=== PATIENT | female | born 1965 | race Caucasian/White ===

== ENCOUNTER 2017-12-01 09:09 | Day surgery (SDC) | payer OTHER ==
[2017-11-30 17:08] VITALS: BMI 33.5
[2017-12-01] MEDS ORDERED: PROPOFOL 20 ML ONE (12:31)
[2017-12-01] MEDS ORDERED: MIDAZOLAM HCL 2 MG/2 ML SINGLE DOSE VIAL ONE (12:31)
[2017-12-01] MEDS ORDERED: ePHEDrine SULFATE 50 MG/1 ML AMPULE ONE (12:36)
[2017-12-01] MEDS ORDERED: LIDOCAINE HCL 2% (20ML MULTI-DOSE VIAL) NR ONE (13:14)
[2017-12-01] MEDS ORDERED: LIDOCAINE HCL 1%, 10 MG/ML (50 mL VIAL) IJ ONE (13:24)
[2017-12-01] MEDS ORDERED: LIDOCAINE HCL 1% PRESERVATIVE FREE - 30ML VIAL IJ ONE (13:24)
[2017-12-01] MEDS ORDERED: ONDANSETRON 4 MG/2 ML VIAL IVPUSH PRN (14:32)
[2017-12-01] MEDS ORDERED: oxyCODONE HCL 5 MG TABLET PO PRN (14:32)
[2017-12-01] MEDS ORDERED: ACETAMINOPHEN INJECTION 100 ML IVPB ONE (14:54)
[2017-12-01] MEDS ORDERED: ACETAMINOPHEN 1000 MG/100 ML VIAL (NON FORMULARY) IVPB ONE (15:10)
[2017-12-01 16:35] VITALS: BP 127/69; PULSE 57; TEMP 98.2
--- NOTE | 2017-12-02 10:24 | OP ---
DATE OF OPERATION: 12/01/2017 PREOPERATIVE DIAGNOSIS: Left breast abnormal mammogram. POSTOPERATIVE DIAGNOSIS: Left breast abnormal mammogram. PROCEDURE: Left breast wire-localized excisional biopsy. SURGEON: Tisha Quiroga MD ANESTHESIA: Local with IV sedation. ESTIMATED BLOOD LOSS: Minimal. COMPLICATIONS: None. DISPOSITION: Stable at the end of the procedure. INDICATION FOR PROCEDURE: Patient presented with a screening mammogram that noted cluster microcalcifications in the upper left breast. Given that it was in an area of dense tissue and difficult to see, I did not feel this could be done as a stereotactic needle biopsy. Therefore, I discussed an excisional biopsy. The procedure was discussed with all her questions answered. PROCEDURE IN DETAIL: Patient was brought to [facility] in [place], taken to breast imaging where a wire was used to localize the calcifications in the upper left breast, was then brought to the operating room. After IV sedation and IV antibiotics, the left breast was prepped and draped in usual sterile fashion. The area of the upper left breast was anesthetized with 1% lidocaine without epinephrine. A curvilinear incision was made in the upper left breast, and a wire was used as a guide to get down to the area of interest. This was excised en bloc and sent for specimen radiograph. Hemostasis assured with electrocautery. The specimen radiograph showed the calcifications and the wire to be intact in the specimen. This was then sent to Pathology for permanent section. Once hemostasis was assured with electrocautery, the parenchyma was approximated with interrupted 2-0 Vicryl, skin approximated with interrupted 3-0 Vicryl and running 4-0 Prolene. A sterile dressing with Tegaderm and 4 x 4's was applied. She tolerated the procedure well, was taken to Recovery in good condition. TISHA QUIROGA M.D. [id number]
--- NOTE | 2017-12-05 12:42 | PATH ---
Surgical Pathology Report Patient Name: ERUM MARTÍNEZ [facility]. Rec. #: [id number] /Age/Gender: 1965 (Age: 52) / F Account: [id number] Location: [facility] SURGICAL Taken: 12/01/2017 Received: 12/01/2017 Reported: 12/05/2017 Physicians: Tisha Crystal M.D. Specimen(s) Received LEFT BREAST MASS Clinical History Microcalcification Final Diagnosis BREAST, LEFT, EXCISION: BENIGN BREAST TISSUE WITH PROLIFERATIVE FIBROCYSTIC CHANGES INCLUDING STROMAL FIBROSIS, MICROCYSTS, APOCRINE METAPLASIA, COLUMNAR CELL CHANGE, AND SCLEROSING ADENOSIS WITH ASSOCIATED MICROCALCIFICATIONS. Electronically Signed Erum Newell M.D. Gross Description Received fresh on [employer] labeled "left breast excision," is a 7.3 x 4.7 x 2.0 cm irregular, unoriented portion of fibroadipose tissue with a needle localization wire present. There is no skin or nipple present. The specimen is inked blue and serially sectioned. Sectioning reveals abundant dense, white, focally firm fibrous tissue. No definitive masses are identified. [employer] sections including the majority of the fibrous tissue are sequentially submitted in 15 cassettes (one bisected section each in cassettes 06/18, 08/20, 10/22, 12/25, 02/26, ). Total formalin fixation time: Approximately 60 hour 12/01/201712/01/2017
== END 2017-12-01 17:00 | disposition home or self-care (01) ==
LOC: JASU-SURG 09:09
PROVIDERS: ATTEND Surgery
PROC: 0HBU0ZX Excision of Left Breast, Open Approach, Diagnostic (ICD-10-PCS; principal; 2017-12-01 11:00)
DX: N60.12 Diffuse cystic mastopathy of left breast (principal); N60.22 Fibroadenosis of left breast; N60.82 Other benign mammary dysplasias of left breast
CPT/HCPCS: 19281; 84703; 88307-TC; 94760; J0131